=== PATIENT | male | born 1995 | race Caucasian/White ===

== ENCOUNTER 2024-01-16 09:46 | Emergency (ER) | payer MEDICAID ==
[~2024-01-16] VITALS: Ht 185.4 cm; Wt 93.0 kg
[2024-01-16 10:42] VITALS: BP 106/69; PULSE 108; RESP 18; TEMP 98.2; O2SAT 100
== END 2024-01-16 11:44 | disposition home or self-care (01) ==
LOC: ER 09:55
DX: Z11.1 Encounter for screening for respiratory tuberculosis (principal)
CPT/HCPCS: 71045; 99283